=== PATIENT | female | born 1970 | race Asian ===

== ENCOUNTER → 2017-01-31 | Outpatient (CLI) | payer OTHER | LOC: FIMAGING 14:39 | PROVIDERS: ATTEND Family Medicine | DX: Z12.31 Encounter for screening mammogram for malignant neoplasm of breast (principal) | CPT/HCPCS: G0202 ==

== ENCOUNTER → 2017-02-14 | Outpatient (CLI) | payer OTHER | LOC: FIMAGING 10:40 | PROVIDERS: ATTEND Family Medicine | DX: N60.02 Solitary cyst of left breast (principal) ==

== ENCOUNTER 2017-03-28 10:30 | Emergency (ER) | payer OTHER ==
--- NOTE | 2017-03-28 10:45 | CPEKG ---
Heart Rate: 64 RR Interval: 938 P-R Interval: 176 QRSD Interval: 88 QT Interval: 376 QTC Interval: 388 P Reading: 20 QRS Reading: 65 T Wave Reading: 12 EKG Severity - NORMAL ECG - EKG Impression: SINUS RHYTHM Electronically Signed By: Evelin Mon 28-Mar-2017 14:38:34
[2017-03-28] MEDS ORDERED: MAG HYDROX/AL HYDROX/SIMETH 30 ML UDCUP PO ONE (11:02)
[2017-03-28] MEDS ORDERED: LIDOCAINE 2% VISCOUS 15 ML UDCUP PO ONE (11:02)
[2017-03-28] MEDS ORDERED: HYOSCYAMINE SULFATE 0.125 MG TAB PO ONE (11:02)
--- NOTE | 2017-03-28 11:06 | EDPHY ---
H & P Time Seen by Provider: 03/28/17 10:52 HPI/ROS: CHIEF COMPLAINT: Chest pain HISTORY OF PRESENT ILLNESS: 48-year-old female presents with chest pain. At 7: 00 a.m., she woke up and drank a glass of water. Fairly soon after drinking the water, she was sitting and had the onset of substernal chest pressure, which radiated to her jaw. The discomfort lasted approximately 20 min and then completely resolved. No shortness of breath or dizziness. She had a recent upper respiratory infection, feeling better today. She exercises regularly and has never had chest pain with exertion. Cardiac risk factors negative. Nonsmoker; no family history; no hypertension, diabetes or hypercholesterolemia. REVIEW OF SYSTEMS: Constitutional: No fever, no chills Eyes: No visual changes ENT: No sore throat Gastrointestinal: No nausea, no vomiting, no abdominal pain Genitourinary: no dysuria Musculoskeletal: No leg pain or swelling Skin: No rash Neurological: No headache, no weakness Psychiatric: No depression Past Medical/Surgical History: Denies Social History: No recent alcohol Smoking Status: Never smoked Physical Exam: General Appearance: Alert, pleasant Eyes: Pupils equal and round, no conjunctival pallor or injection ENT, Mouth: Mucous membranes moist Neck: Normal inspection Respiratory: Lungs are clear to auscultation Cardiovascular: Regular rate and rhythm Gastrointestinal: Abdomen is soft, epigastric tenderness Neurological: A&O, nonfocal, normal gait Skin: Warm and dry, no rash Extremities: Nontender, no pedal edema Psychiatric: Mood and affect normal Constitutional: Initial Vital Signs Temperature (C) 36.8 C 03/28/17 10:31 Heart Rate 67 03/28/17 10:31 Respiratory Rate 18 03/28/17 10:31 Blood Pressure 124/81 H 03/28/17 10:31 O2 Sat (%) 99 03/28/17 10:31 O2 Delivery Mode Room Air Allergies/Adverse Reactions: Sulfa (Sulfonamide Antibiotics) Allergy (Verified 03/28/17 10:31) Home Medications: Medication Instructions Recorded Aspirin 81mg (*) 03/28/17 Vitamins And Supplements 03/28/17 Medical Decision Making - Diagnostics EKG Interpretation: EKG interpreted by me reveals normal sinus rhythm, rate 64, no ST or T segment changes. Interpretation: Normal EKG Imaging Results: Chest x-ray independently reviewed by me reveals no acute disease. ED Course/Re-evaluation: This patient presents with an episode of chest pain at rest. No RF for cardiac disease. Stat EKG reveals no evidence of ischemia or dysrhythmia. Clinical presentation c/w GERD, given onset after drinking water an epigastric tenderness. CXR unremarkable, pt continues to be asymptomatic. Laboratory tests and chest x -ray discussed with the patient. She will follow up with primary care physician. Differential Diagnosis: Differential diagnosis includes though it is not limited to pneumonia, pneumothorax, pulmonary embolism, aortic dissection, pericarditis, acute coronary syndrome. - Data Points Laboratory Results: Laboratory Results 03/28/17 10:48 03/28/17 10:48 Medications Given: Discontinued Medications Al Hydroxide/Mg Hydroxide (Maalox Susp) 30 ml PO ONCE ONE Stop: 03/28/17 11:03 Last Admin: 03/28/17 11:14 Dose: 30 ml Hyoscyamine Sulfate (Levsin, Hyomax-Sl) 0.25 mg PO ONCE ONE Stop: 03/28/17 11:03 Last Admin: 03/28/17 11:12 Dose: 0.25 mg Lidocaine (Lidocaine 2% Viscous) 15 ml PO ONCE ONE Stop: 03/28/17 11:03 Last Admin: 03/28/17 11:14 Dose: 15 ml Departure - Departure Disposition: Home, Routine, Self-Care Clinical Impression: Chest pain Qualifiers: Chest pain type: precordial pain Qualified Code(s): R07.2 - Precordial pain Condition: Good Instructions: Chest Pain (ED) Additional Instructions: All of your testing in the emergency department is normal. Your chest x-ray and EKG are normal. I suspect that you had reflux causing your symptoms this morning. If the symptoms recur, take Maalox or Mylanta. If the symptoms do not resolve, return to the emergency department. Referrals: Aide Lyle MD [Primary Care Provider] - 5-7 days, call for appt.
[2017-03-28 11:09] LABS: % IMMATURE GRANULYOCYTES 0.2 % (0.0-1.1); ABSOLUTE IMMATURE GRANULOCYTES 0.01 10^3/uL (0.00-0.10); ADD DIFF? NO; ADD MORPH? NO; ADD SCAN? NO; ATYPICAL LYMPHOCYTE FLAG 10 (0-99); FRAGMENT RBC FLAG 0 (0-99); HEMATOCRIT 40.7 % (38.0-47.0); HEMOGLOBIN 13.7 g/dL (12.6-16.3); LEFT SHIFT FLG 0 (0-99); LIPEMIA HEMOLYSIS FLAG 80 (0-99); MEAN CELL HEMOGLOBIN 29.2 pg (27.9-34.1); MEAN CELL HEMOGLOBIN CONCENTR. 33.7 g/dL (32.4-36.7); MEAN CELL VOLUME 86.8 fL (81.5-99.8); MEAN PLATELET VOLUME 9.2 fL (8.7-11.7); PLATELET CLUMPS FLAG 0 (0-99); PLATELET COUNT 275 10^3/uL (150-400); RED BLOOD CELL COUNT 4.69 10^6/uL (4.18-5.33); RED CELL DISTRIBUTION WIDTH 13.2 % (11.5-15.2)
[2017-03-28 11:34] LABS: ANION GAP 12 mEq/L (8-16); CALCIUM 9.8 mg/dL (8.5-10.4); CARBON DIOXIDE 27 mEq/l (22-31); CHLORIDE 99 mEq/L (97-110); CREATININE 0.8 mg/dL (0.6-1.0); GLOMERULAR FILTRATION RATE > 60; GLUCOSE 65 mg/dL (70-100); POTASSIUM 3.8 mEq/L (3.5-5.2); SODIUM 138 mEq/L (134-144)
[2017-03-28 11:44] LABS: TROPONIN I < 0.012 ng/mL (0.000-0.034)
[2017-03-28 12:10] VITALS: BP 122/78; PULSE 80; RESP 16; TEMP 98.4; O2SAT 97
== END 2017-03-28 12:10 | disposition home or self-care (01) ==
DX: R07.2 Precordial pain (principal); Z79.82 Long term (current) use of aspirin

== ENCOUNTER → 2018-02-01 | Outpatient (CLI) | payer OTHER | LOC: FIMAGING 08:36 | PROVIDERS: ATTEND Family Medicine | DX: Z12.31 Encounter for screening mammogram for malignant neoplasm of breast (principal) ==